=== PATIENT | male | born 1995 | race Caucasian/White ===

== ENCOUNTER 2017-02-08 09:10 | Emergency (ER) | payer OTHER ==
[~2017-02-08] VITALS: Ht 175.3 cm; Wt 60.8 kg
[2017-02-08] MEDS ORDERED: ONDA4TAB13 SL (09:30)
[2017-02-08] MEDS ORDERED: AMOX1TAB12 PO (09:30)
[2017-02-08] MEDS ORDERED: DEXAMETHASONE 4 MG/ML, 1ML IVPush ONE (10:30)
[2017-02-08] MEDS ORDERED: SODIUM CHLORIDE FLUSH 10ML SYR IVF ONE (10:30)
[2017-02-08] MEDS ORDERED: OXYMETAZOLINE NASAL SPRAY 0.05%, 15ML NAS ONE (10:30)
[2017-02-08] MEDS ORDERED: SODIUM CHLORIDE 0.9% 1,000ML IVBOLUS ONE (10:30)
[2017-02-08] MEDS ORDERED: AMPICILLIN/SULBACTAM 3 GM in SODIUM CHLORIDE 0.9% 100 ML IV ONE (10:30)
[2017-02-08 10:46] LABS: BLOOD UREA NITROGEN 8 mg/dL (7-18)
[2017-02-08 10:49] LABS: ASPARTATE AMINO TRANSFERASE 10 U/L (15-37)
[2017-02-08] MEDS ORDERED: OXYMETAZOLINE NASAL SPRAY 0.05%, 15ML ONE (11:13)
[2017-02-08] MEDS ORDERED: DEXAMETHASONE 4 MG/ML, 5ML ONE (11:13)
[2017-02-08 12:40] VITALS: BP 100/60
== END 2017-02-08 12:42 | disposition home or self-care (01) ==
LOC: ED 12:03
DX: J02.9 Acute pharyngitis, unspecified (principal); J20.9 Acute bronchitis, unspecified
CPT/HCPCS: 36415; 71010; 80053; 85025; 86308; 87081; 87880; 93005; 96365; 96375; 99285; J0295; J1100; J7030